=== PATIENT | male | born 1990 | race American Indian/Alaskan Native ===

== ENCOUNTER 2019-12-03 10:19 | Emergency (ER) | payer SELFPAY ==
[2019-12-03 10:28] VITALS: BP 131/75
[2019-12-03] MEDS ORDERED: diphenhydrAMINE 50 MG/ML VIAL IV ONE (11:19)
[2019-12-03] MEDS ORDERED: dexAMETHasone 20 MG/5 ML VIAL IV ONE (11:19)
[2019-12-03] MEDS ORDERED: FAMOTIDINE 20 MG/2 ML INJ IV ONE (11:19)
--- NOTE | 2019-12-03 11:48 | Emergency Department Report ---
ED General Adult HPI - General Chief complaint: Allergic Reaction Stated complaint: ALLERGIC REACTIONS Time Seen by Provider: 12/03/19 11:17 Source: patient Mode of arrival: Ambulatory Limitations: No Limitations - History of Present Illness Initial comments: 29-year-old -[place] Citizen male presents to the emergency room for generalized hives after wearing a new uniform. Patient states he sees a new uniform on Tuesday from his job and then started to have hives. Patient reports he took Benadryl which improved some but when he woke up this morning the itching and to have gotten worse. Patient denies any shortness of breathing no chest pain or difficulty swallowing. Onset/Timin -: days(s) Location: chest, upper extremity, lower extremity Quality: other (itching) Consistency: constant Improves with: medication (Benadryl) Worsens with: none Associated Symptoms: denies other symptoms Treatments Prior to Arrival: none - Related Data Previous Rx's Medication Instructions Recorded Last Taken Type Famotidine [Pepcid] 20 mg PO BID 5 Days #10 tablet 12/03/19 Unknown Rx Prednisone [predniSONE 10 mg 10 mg PO .TAPER #1 tab.ds.pk 12/03/19 Unknown Rx (6-Day Pack, 21 Tabs)] Allergies Allergy/AdvReac Type Severity Reaction Status Date / Time No Known Allergies Allergy Unverified 12/03/19 10:22 ED Review of Systems ROS: Stated complaint: ALLERGIC REACTIONS Other details as noted in HPI ED Past Medical Hx - Past Medical History Previous Medical History?: No - Surgical History Past Surgical History?: No - Social History Smoking Status: Current Every Day Smoker Substance Use Type: None - Medications Home Medications: Home Medications Medication Instructions Recorded Confirmed Last Taken Type Famotidine [Pepcid] 20 mg PO BID 5 Days #10 tablet 12/03/19 Unknown Rx Prednisone [predniSONE 10 mg 10 mg PO .TAPER #1 tab.ds.pk 12/03/19 Unknown Rx (6-Day Pack, 21 Tabs)] ED Physical Exam - General Limitations: No Limitations ED Course Vital Signs 12/03/19 10:23 Temperature 97.9 F Pulse Rate 86 Respiratory 16 Rate Blood Pressure 131/75 O2 Sat by Pulse 96 Oximetry ED Medical Decision Making - Medical Decision Making 29-year-old -[place] Citizen male presents to the emergency room for generalized hives after wearing a new uniform. Patient states he sees a new uniform on Tuesday from his job and then started to have hives. Patient reports he took Benadryl which improved some but when he woke up this morning the itching and to have gotten worse. Patient denies any shortness of breathing no chest pain or difficulty swallowing. Patient be given dexamethasone IV, Pepcid IV, Benadryl IV. Patient be discharged home with a prednisone pack and to follow-up with an exceptional needs teacher. Critical care attestation.: If time is entered above; I have spent that time in minutes in the direct care of this critically ill patient, excluding procedure time. ED Disposition Clinical Impression: Urticaria Disposition: - TO HOME OR SELFCARE Is pt being admited?: No Does the pt Need Aspirin: No Condition: Stable Instructions: Urticaria (ED) Additional Instructions: continue with Benadryl as needed for itching. Take medications as prescribed following which a primary care provider if his symptoms persist or gets worse. Prescriptions: Famotidine [Pepcid] 20 mg PO BID 5 Days #10 tablet Prednisone [predniSONE 10 mg (6-Day Pack, 21 Tabs)] 10 mg PO .TAPER #1 tab.ds.pk Referrals: VLADIMIR PADILLA JR, MD [Staff Physician] - 3-5 Days Forms: Work/School Release Form(ED)
[2019-12-03] MEDS ORDERED: IPRATROPIUM 0.02% NEBU 2.5 ML IH ONE (11:54)
[2019-12-03] MEDS ORDERED: ALBUTEROL 2.5 MG/3 ML NEBU IH ONE (11:54)
== END 2019-12-03 12:27 | disposition home or self-care (01) ==
LOC: ED 10:19
DX: L50.0 Allergic urticaria (principal); F17.200 Nicotine dependence, unspecified, uncomplicated; Z79.899 Other long term (current) drug therapy
CPT/HCPCS: 96374; 96375; 99282; J1100; J1200

== ENCOUNTER 2019-12-08 13:27 | Emergency (ER) | payer SELFPAY ==
[2019-12-08 13:39] VITALS: BP 138/78
--- NOTE | 2019-12-08 14:33 | Emergency Department Report ---
ED General Adult HPI - General Chief complaint: Skin Rash Stated complaint: HIVES Time Seen by Provider: 12/08/19 14:28 Source: patient Mode of arrival: Ambulatory Limitations: No Limitations - History of Present Illness Initial comments: Mr. Hernandez returns to the ED after being treated for allergic reaction. 5 days ago He developed hives after trying on a new jumpsuit for work. NO shortness of breath. No lip or throat involvement. The hives return at night he just finished prednisone taper and famotidine. -: Gradual, During the night Location: back, abdomen, left, right, upper extremity, lower extremity Consistency: now resolved Improves with: medication Associated Symptoms: denies other symptoms - Related Data Previous Rx's Medication Instructions Recorded Last Taken Type Famotidine [Pepcid] 20 mg PO BID 5 Days #10 tablet 12/03/19 Unknown Rx Prednisone [predniSONE 10 mg 10 mg PO .TAPER #1 tab.ds.pk 12/03/19 Unknown Rx (6-Day Pack, 21 Tabs)] Prednisone [predniSONE 10 mg 10 mg PO .TAPER #1 tab.ds.pk 12/08/19 Unknown Rx (6-Day Pack, 21 Tabs)] Allergies Allergy/AdvReac Type Severity Reaction Status Date / Time No Known Allergies Allergy Unverified 12/03/19 10:22 ED Review of Systems ROS: Stated complaint: HIVES Other details as noted in HPI Constitutional: denies: fever, malaise Respiratory: denies: cough, shortness of breath Gastrointestinal: denies: abdominal pain Skin: rash ED Past Medical Hx - Past Medical History Previous Medical History?: Yes Additional medical history: Urticaria - Surgical History Past Surgical History?: No - Social History Smoking Status: Current Some Day Smoker - Medications Home Medications: Home Medications Medication Instructions Recorded Confirmed Last Taken Type Famotidine [Pepcid] 20 mg PO BID 5 Days #10 tablet 12/03/19 Unknown Rx Prednisone [predniSONE 10 mg 10 mg PO .TAPER #1 tab.ds.pk 12/03/19 Unknown Rx (6-Day Pack, 21 Tabs)] Prednisone [predniSONE 10 mg 10 mg PO .TAPER #1 tab.ds.pk 12/08/19 Unknown Rx (6-Day Pack, 21 Tabs)] ED Physical Exam - General Limitations: No Limitations General appearance: alert, in no apparent distress - Head Head exam: Present: atraumatic, normocephalic - Eye Eye exam: Present: normal appearance - ENT ENT exam: Present: mucous membranes moist - Neck Neck exam: Present: normal inspection - Respiratory Respiratory exam: Present: normal lung sounds bilaterally. Absent: respiratory distress, wheezes, rales, rhonchi - Cardiovascular Cardiovascular Exam: Present: regular rate, normal rhythm. Absent: systolic murmur, diastolic murmur, rubs, gallop - GI/Abdominal GI/Abdominal exam: Present: soft, normal bowel sounds - Rectal Rectal exam: Present: deferred - Extremities Exam Extremities exam: Present: normal inspection - Back Exam Back exam: Present: normal inspection - Neurological Exam Neurological exam: Present: alert, oriented X3 - Psychiatric Psychiatric exam: Present: normal affect, normal mood - Skin Skin exam: Present: warm, dry, intact, normal color. Absent: rash ED Course Vital Signs 12/08/19 13:34 Temperature 97.9 F Pulse Rate 69 Respiratory 18 Rate Blood Pressure 138/78 O2 Sat by Pulse 96 Oximetry ED Medical Decision Making - Medical Decision Making acute allergic reaction likely to red dye of jump suit. rx: prednisone taper referred to certified corporate travel executive Critical care attestation.: If time is entered above; I have spent that time in minutes in the direct care of this critically ill patient, excluding procedure time. ED Disposition Clinical Impression: Urticaria Disposition: DC-01 TO HOME OR SELFCARE Is pt being admited?: No Does the pt Need Aspirin: No Condition: Stable Prescriptions: Prednisone [predniSONE 10 mg (6-Day Pack, 21 Tabs)] 10 mg PO .TAPER #1 tab.ds.pk Referrals: SUSHMA HATFIELD MD [Referring] - 3-5 Days
== END 2019-12-08 14:56 | disposition home or self-care (01) ==
LOC: ED 13:27
DX: L50.9 Urticaria, unspecified (principal); T78.40XA Allergy, unspecified, initial encounter; Y92.89 Other specified places as the place of occurrence of the external cause; F17.200 Nicotine dependence, unspecified, uncomplicated
CPT/HCPCS: 99282

== ENCOUNTER 2019-12-08 23:25 | Emergency (ER) | payer SELFPAY ==
[2019-12-08 23:37] VITALS: BP 120/72
[2019-12-09] MEDS ORDERED: methylPREDNISolone Sod Succinate 125 MG/2 ML INJ ONE (00:35)
[2019-12-09] MEDS ORDERED: methylPREDNISolone Sod Succinate 125 MG/2 ML INJ IM ONE (00:36)
--- NOTE | 2019-12-09 00:36 | Emergency Department Report ---
ED Allergic Reaction HPI - General Chief complaint: Allergic Reaction Stated complaint: POSS ALLERGIC REACTION/RASH Time Seen by Provider: 12/09/19 00:15 Source: patient Mode of arrival: Ambulatory Limitations: No Limitations - History of Present Illness Initial Comments: 29-year-old male presents to ED with allergic reaction. Patient was seen 5 days ago for same and diagnosed with urticaria. Patient reports he received a new uniform at work, after wearing it for the first time he broke out in hives. Patient was given prescription for prednisone and Pepcid at last ED visit. Patient states he has taken those medications, but is still having intermittent urticaria reactions. Patient also reports that symptoms may be due to the use of a new laundry detergent. States he normally uses gain detergent, however bought a generic brand that was on sale. He is unsure if his symptoms could be related to this. MD Complaint: hives -: days(s) (5) Exposure: other Symptoms: rash, itching. denies: facial swelling, lip swelling, difficulty swallowing, difficulty breathing, orolingual swelling, nausea, vomiting Severity: mild Treatment Prior to Arrival: benadryl, steroids Previous Allergy History: none - Related Data Previous Rx's Medication Instructions Recorded Last Taken Type Famotidine [Pepcid] 20 mg PO BID 5 Days #10 tablet 12/03/19 Unknown Rx Prednisone [predniSONE 10 mg 10 mg PO .TAPER #1 tab.ds.pk 12/03/19 Unknown Rx (6-Day Pack, 21 Tabs)] Prednisone [predniSONE 10 mg 10 mg PO .TAPER #1 tab.ds.pk 12/08/19 Unknown Rx (6-Day Pack, 21 Tabs)] predniSONE [Deltasone] 50 mg PO QDAY #5 tab 12/09/19 Unknown Rx Allergies Allergy/AdvReac Type Severity Reaction Status Date / Time No Known Allergies Allergy Verified 12/09/19 00:44 ED Review of Systems ROS: Stated complaint: POSS ALLERGIC REACTION/RASH Other details as noted in HPI Comment: All other systems reviewed and negative Constitutional: denies: chills, fever Respiratory: denies: shortness of breath Gastrointestinal: denies: vomiting Skin: rash ED Past Medical Hx - Past Medical History Previous Medical History?: Yes Additional medical history: Urticaria 11/2019 - Surgical History Past Surgical History?: Yes - Social History Smoking Status: Unknown if ever smoked Substance Use Type: Marijuana - Medications Home Medications: Home Medications Medication Instructions Recorded Confirmed Last Taken Type Famotidine [Pepcid] 20 mg PO BID 5 Days #10 tablet 12/03/19 Unknown Rx Prednisone [predniSONE 10 mg 10 mg PO .TAPER #1 tab.ds.pk 12/03/19 Unknown Rx (6-Day Pack, 21 Tabs)] Prednisone [predniSONE 10 mg 10 mg PO .TAPER #1 tab.ds.pk 12/08/19 Unknown Rx (6-Day Pack, 21 Tabs)] predniSONE [Deltasone] 50 mg PO QDAY #5 tab 12/09/19 Unknown Rx ED Physical Exam - General Limitations: No Limitations General appearance: alert, in no apparent distress - Head Head exam: Present: atraumatic, normocephalic - Eye Eye exam: Present: normal appearance, EOMI - ENT ENT exam: Present: mucous membranes moist - Neck Neck exam: Present: normal inspection - Respiratory Respiratory exam: Present: normal lung sounds bilaterally. Absent: respiratory distress, wheezes, stridor - Cardiovascular Cardiovascular Exam: Present: regular rate, normal rhythm - GI/Abdominal GI/Abdominal exam: Present: soft. Absent: distended, tenderness - Extremities Exam Extremities exam: Present: normal inspection, full ROM - Neurological Exam Neurological exam: Present: alert, oriented X3 - Psychiatric Psychiatric exam: Present: normal affect, normal mood - Skin Skin exam: Present: rash (urticarial rash present diffusely) ED Course Vital Signs 12/08/19 12/08/19 23:31 23:33 Temperature 97.7 F 97.7 F Pulse Rate 82 83 Respiratory 18 18 Rate Blood Pressure 120/72 120/72 O2 Sat by Pulse 98 98 Oximetry ED Medical Decision Making - Differential Diagnosis urticaria Critical care attestation.: If time is entered above; I have spent that time in minutes in the direct care of this critically ill patient, excluding procedure time. ED Disposition Clinical Impression: Urticaria Disposition: DC-01 TO HOME OR SELFCARE Is pt being admited?: No Condition: Stable Instructions: Urticaria (ED), Allergies (ED) Additional Instructions: Clinical Dermatologist: Dr Arturo Mccain [address] [place] [id number] Prescriptions: predniSONE [Deltasone] 50 mg PO QDAY #5 tab Referrals: [facility] [Provider Group] - 3-5 Days Time of Disposition: 00:36
== END 2019-12-09 01:00 | disposition home or self-care (01) ==
LOC: ED 23:25
DX: L50.9 Urticaria, unspecified (principal); T78.40XA Allergy, unspecified, initial encounter; Y92.89 Other specified places as the place of occurrence of the external cause
CPT/HCPCS: 96372; 99281; J2930